=== PATIENT | female | born 1985 | race Caucasian/White ===

== ENCOUNTER → 2018-01-30 | Outpatient (CLI) | payer OTHER ==
[~2018-01-30] MED LIST: Benzocaine 60 ML TP; CLOM50TA PO; DOCU240C67 PO; IBUP600T22 PO; LOR5/325 PO; Lanolin TP; PREN1TAB29 PO; TUCKS TP
[2018-01-30 09:01] LABS: PLATELET COUNT, AUTOMATED 363 K/uL (150-450)
== END ==
LOC: LAB 07:55
PROVIDERS: ATTEND Obstetrics & Gynecology
DX: Z34.91 Encounter for supervision of normal pregnancy, unspecified, first trimester (principal)
CPT/HCPCS: 36415; 81001; 85025; 86592; 86703; 86762; 86850; 86900; 86901; 87088; 87340

== ENCOUNTER → 2018-02-12 | Outpatient (CLI) | payer OTHER | LOC: LAB 15:32 | PROVIDERS: ATTEND Student in an Organized Health Care Education/Training Program | DX: Z34.91 Encounter for supervision of normal pregnancy, unspecified, first trimester (principal) | CPT/HCPCS: 87491; 87591 ==

== ENCOUNTER → 2018-05-07 | Outpatient (CLI) | payer OTHER ==
[~2018-05-07] MED LIST changes: +AMOX500T10 PO; +FLU60VIA41 IM
--- NOTE | 2018-05-07 14:18 | RADIOLOGY IMAGING REPORT ---
FACILITY: [facility] [place] PATIENT NAME: Norma Talbot : 1985 MR: [id number] V: [id number] EXAM DATE: ORDERING PHYSICIAN: XIANG BLACK TECHNOLOGIST: Location: Patient: Norma Talbot : 1985 Visit/Account:[id number] Date of Sevice: 05/07/2018 [facility] OB ANATOMICAL SURVEY HISTORY: Anatomic survey COMPARISON: None. TECHNIQUE: Transabdominal imaging was performed for assessment of the fetus and maternal pelvic s tructures. Transvaginal imaging was not performed. FINDINGS: Intrauterine gestations: One. presentation: Cephalic. heart rate: 138 bpm. Amniotic fluid volume: Normal; DOM 13.2 cm; MVP 4 cm. Placenta: Posterior. Uterus: Gravid, otherwise grossly unremarkable where visualized. Maternal adnexa/ovaries: Grossly unremarkable, ovaries not visualized. Cervix: Grossly long and closed. Gestational Parameters: BPD: 4.89 cm, 52nd percentile HC: 18.54 cm, 49th percentile AC: 15.56 cm, 44th percentile FL: 3.31 cm, 29th percentile Average ultrasound age (AUA): 20 weeks/ six days Estimated age based on LMP: 20 weeks/ five days Estimated weight (EFW): 364 grams +/- 54 grams Anatomic Survey: Intracranial structures, 4-chamber heart, stomach, kidneys, urinary bladder, spine, 3-vessel cord and cord insertion are unremarkable. Two upper and two lower extremities visualized. IMPRESSION: Single viable fetus in cephalic presentation with an estimated gestational age by measurements of 20 weeks and six days. The estimated weight is 364 g Report Dictated By: Malena Nolasco MD at 05/07/2018 2:09 PM Report E-Signed By: Malena Nloasco MD at 05/07/2018 2:15 PM WSN:[email or web address]
== END ==
LOC: RAD 08:01
PROVIDERS: ATTEND Student in an Organized Health Care Education/Training Program
DX: Z02.9 Encounter for administrative examinations, unspecified (principal)

== ENCOUNTER → 2018-06-25 | Outpatient (CLI) | payer OTHER ==
[~2018-06-25] MED LIST changes: +AZIT-17 PO; +DIPH0.5D12 IM
[2018-06-25 16:51] LABS: PLATELET COUNT, AUTOMATED 340 K/uL (150-450)
== END ==
LOC: LAB 08:26
PROVIDERS: ATTEND Student in an Organized Health Care Education/Training Program
DX: O09.522 Supervision of elderly multigravida, second trimester (principal)
CPT/HCPCS: 36415; 82950; 85025

== ENCOUNTER → 2018-06-29 | Outpatient (CLI) | payer OTHER | LOC: LAB 07:39 | PROVIDERS: ATTEND Student in an Organized Health Care Education/Training Program | DX: Z02.9 Encounter for administrative examinations, unspecified (principal) ==

== ENCOUNTER → 2018-08-25 | Outpatient (CLI) | payer OTHER | LOC: LAB 08:08 | PROVIDERS: ATTEND Student in an Organized Health Care Education/Training Program | DX: Z36.85 Encounter for antenatal screening for Streptococcus B (principal) | CPT/HCPCS: 87081 ==

== ENCOUNTER 2018-09-14 01:49 | Inpatient (IN) | payer OTHER ==
[~2018-09-14 01:49] MED LIST changes: -IBUP800T37 PO
[2018-09-14] MEDS ORDERED: OXYTOCIN 30 UNIT/D5LR 500 ML 500 ML IV PRN (02:05)
[2018-09-14] MEDS ORDERED: LR(*) 1000 ML BAG 1,000 ML IV SCH (02:05)
[2018-09-14] MEDS ORDERED: MAGNESIUM HYDROXIDE* 30ML UDCP PO PRN (02:20)
[2018-09-14] MEDS ORDERED: GLYCERIN/WITCH HAZEL LEAF 1 PK TOP PRN (02:20)
[2018-09-14] MEDS ORDERED: APAP/HYDROCODONE 325/5 TAB PO PRN (02:20)
[2018-09-14] MEDS ORDERED: HYDROCORTISONE 2.5% CR 30GM TB PR PRN (02:20)
[2018-09-14] MEDS ORDERED: LANOLIN OINT 7 GM TUBE TP PRN (02:20)
[2018-09-14] MEDS ORDERED: BENZOCAINE 20% 60 ML BTL TP PRN (02:20)
[2018-09-14] MEDS ORDERED: ACETAMINOPHEN 325 MG TAB PO PRN (02:20)
[2018-09-14 02:24] LABS: PLATELET COUNT, AUTOMATED 317 K/uL (150-450)
[2018-09-14] MEDS: IBUPROFEN 800 MG TAB PO SCH ×3 (02:33→20:26)
[2018-09-14 09:00] VITALS: BP 105/65
[2018-09-14] MEDS: MULTIVITAMINS (PRENATAL) TAB PO SCH (09:11)
[2018-09-14] MEDS: DOCUSATE CALCIUM 240 MG CAP PO SCH ×2 (09:11→20:26)
--- NOTE | 2018-09-14 09:47 | History & Physical ---
History of Present Illness Age of Patient: 33 : 3 Para or TPAL: 1 EDC per LMP: Sep 19, 2018 Estimated Gestational Age: 39.2 Chief Complaint Delivered home. History of Present Illness 33-year-old 3 para 1 at 39-2/7 weeks' gestation presented to to L&D via ambulance after delivering home. Patient reports she had contractions all day Friday afternoon there were only the lower part of her belly and progressively worsened overnight. Patient states she informed her and was sent to the hospital around 1:00 and while waiting for family to arrive to [facility] there boy this at home she felt this significant urge to push 3 pushes later she delivered a liveborn female at home. Delivery provider was the patient's . Once delivery was performed the fundraising officer arrived they clamped the cord and dad cut the cord and any transfer both mom and baby to the hospital. History Patient's Blood Type: O Positive Rubella Status: Immune Group B Strep Screen: Negative Obstetrical History: Past Medical History: Non contributory. Allergies: Coded Allergies: No Known Drug Allergies (Unverified , 03/07/16) Social History: , present and supportive. No noxious habits. Family History: FH: diabetes mellitus MGF FH: hypertension MOTHER MGF MGM Med Rec Home Meds No Active Prescriptions or Reported Meds Review of Systems All Systems Reviewed/Normal: Yes, Except as Noted Constitutional: No Fever, No Weight Loss, No Weight Gain, No Chills, No Night Sweats, No Other Neurological: No Syncope, No Confusion, No Weakness, No Dizziness, No Slurred Speech, No Other Eyes: No Vision Change, No Loss of Vision, No Photophobia, No Other ENT: No Hearing Loss, No Sinus Congestion, No Sore Throat, No Ear Ache, No Tinnitus, No Other Cardiovascular: No Chest Pain, No Palpitations, No Orthostatic Hypotension, No Other Respiratory: No Shortness of Breath, No Cough, No Wheezing, No Other Gastrointestinal: No Nausea, No Vomiting, No Diarrhea, No Dysphagia, No Constipation, No Early Satiety, No Hematemesis, No Hematochezia, No Melena, No Abdominal Pain, No Other Genitourinary: No Dysuria, No Hematuria, No Urinary Incontinence, No Other Musculoskeletal: No Pain, No Sprain, No Strain, No Impaired Mobility, No Other Psychiatric: No Depression, No Anxiety, No Other Exam General Exam Vital Signs Vital Signs Date Time Temp Pulse Resp B/P (MAP) Pulse Ox O2 Delivery O2 Flow Rate FiO2 09/14/18 09:00 98.2 64 16 105/65 (78) Room Air General Apperance: Alert/Awake/No Acute Distress Neuro: No Gross deficits Eyes: Normal Extraocular Movement & Vison ENT: Normal Cardiovascular: Regular Rate and Rhythm Respiratory: No Respiratory Distress, Clear to Auscultation Abdomen: Soft, Non-Tender, Non-Distended, Fundus - Non-Tender Musculoskeletal: No Weakness/Pain Extremities: No Cyanosis,Clubbing or Edema Integumentary: Skin Intact without Lesions or Rash Psychological: Alert & Oriented X3, Appropriate Mood & Affect Medical Decision Making Data Points Result Diagram: 09/14/18211 Pre-Admit Course Medical Record Review: Yes VTE Prophylasis: Adult Deep Vein Thrombosis/Pulmonary: No Assessment and Plan INSPECTOR FABRIC Assessment: Stable INSPECTOR FABRIC Plan: Routine Post- Care Problems: (1) care and examination Assessment & Plan: day 1. Plan for discharge tomorrow. Patient required only ibuprofen for pain medication. XIANG BLACK DO Sep 14, 2018 09:47
[2018-09-14 12:05] VITALS: BP 110/70
[2018-09-14 16:15] VITALS: BP 112/60
[2018-09-14 20:30] VITALS: BP 118/75
[2018-09-15 00:30] VITALS: BP 111/63
[2018-09-15] MEDS: IBUPROFEN 800 MG TAB PO SCH (03:45)
[2018-09-15 07:05] VITALS: BP 115/75
[2018-09-15] MEDS ORDERED: DOCU240C67 PO (09:12)
[2018-09-15] MEDS ORDERED: IBUP800T37 PO (09:12)
--- NOTE | 2018-09-15 09:15 | OB/GYN Discharge Summary ---
Discharge Summary Reason for Hosp/Final Diag: (1) care and examination Hospital Course & Plan: Pt presented after delivering at home after going through rapid labor. Pt has remained in the hospital for 1 day post . Pt is ambulatory, voiding, and tolerating regular diet. Pt is meeting all post ambulatory goals. Lates Vital Signs Vital Signs Date Time Temp Pulse Resp B/P (MAP) Pulse Ox O2 Delivery O2 Flow Rate FiO2 09/15/18 07:05 97.5 74 18 115/75 (88) 09/14/18 12:05 Room Air Weight (Pounds): 159 Result Diagram: 09/15/18 0549 Condition: Improved Discharge: Home, Self Long Term Meds No Active Prescriptions or Reported Meds Follow up with: [facility] [phone], Dr. Clarke [phone] Follow up in: 6 wks PP or PO, 2 wks PO Discharge Diet: As Tolerates, Resume Prior Admit Diet Discharge Activity: As Tolerates, Pelvic Rest XIANG CLARKE DO Sep 15, 2018 09:15
--- NOTE | 2018-09-15 09:17 | OB/GYN Progress Note ---
OB Subjective Progress Notes Subjective Pt is doing good this morning. Reports bleeding is appropriate. Tolerating regular diet. Ambulatory. Voiding with out any difficulty. GI: NEG Nausea, NEG Vomiting, NEG Flatus, NEG Bowel Movement : Voiding Well, Vaginal Bleeding, Scant Pain: Mild, Comfortable Neurological: No Headache, No Other Eyes: No Visual Disturbances OB Objective Physical Exam Vital Signs Date Time Temp Pulse Resp B/P (MAP) Pulse Ox O2 Delivery O2 Flow Rate FiO2 09/15/18 07:05 97.5 74 18 115/75 (88) 09/14/18 12:05 Room Air Intake and Output 09/15/18 07:00 Intake Total 600 ml Output Total 1000 ml Balance -400 ml Intake Oral 600 ml Output Urine Total 1000 ml # Voids 4 General Appearance: Alert/Awake/No Acute Distress Neurological: No Gross deficits Eyes: Normal Extraocular Movement & Vison ENT: Normal Neck: No Masses Cardiovascular: Normal Rhythm & Peripheral Pulses, Regular Rate and Rhythm Respiratory: No Respiratory Distress, Clear to Auscultation Abdomen: Soft, Non-Tender, Non-Distended, Fundus Firm Extremities: No Cyanosis,Clubbing or Edema Integumentary: Skin Intact without Lesions or Rash Psychological: Alert & Oriented X3, Appropriate Mood & Affect Result Diagram: 09/15/18 0549 Assessment and Plan TRAVEL MANAGER Assessment: Stable TRAVEL MANAGER Plan: Routine Post- Care Problems: (1) care and examination Status: Resolved Assessment & Plan: Plan for discharge today. Follow up in 2 and 6 weeks. XIANG BLACK DO Sep 15, 2018 09:17
[2018-09-15] MEDS: DOCUSATE CALCIUM 240 MG CAP PO SCH (09:58)
[2018-09-15] MEDS: MULTIVITAMINS (PRENATAL) TAB PO SCH (09:58)
== END 2018-09-15 10:40 | disposition home or self-care (01) | DRG 776 ==
LOC: OB 01:49
PROVIDERS: ADMIT Student in an Organized Health Care Education/Training Program; ATTEND Student in an Organized Health Care Education/Training Program
DX: Z39.0 Encounter for care and examination of mother immediately after delivery (principal)
CPT/HCPCS: 36415; 85025; 85027; 86850; 86900; 86901

== ENCOUNTER → 2018-09-14 | Outpatient (CLI) | payer OTHER ==
[~2018-09-14] MED LIST changes: -DIPH0.5D12 IM; +DIPH0.5S2 IM; +IBUP800T37 PO
== END ==
LOC: AMB 01:26
PROVIDERS: ATTEND Nurse Practitioner
DX: Z39.0 Encounter for care and examination of mother immediately after delivery (principal)
CPT/HCPCS: A0425; A0427